=== PATIENT | female | born 1960 | race Caucasian/White ===

== ENCOUNTER 2018-09-27 14:04 | Emergency (ER) | payer SELFPAY ==
[2018-09-27 14:17] VITALS: BP 133/67
--- NOTE | 2018-09-27 14:19 | UC ---
Skin Complaint HPI - HPI Summary HPI Summary: 58 yo female presents with puncture wound. She tells me that last night she was using a knife to remove a plastic ring from a milk jug when the knife slipped and punctured her right hand. She washed the area with water and hydrogen peroxide. Today noticed redness and some mild swelling to the area. Thinks her last tetanus was 9 or 10 years ago. Denies fever, chills, or decreased ROM. - History of Current Complaint Chief Complaint: UCSkin Time Seen by Provider: 09/27/18 14:19 Stated Complaint: RT HAND INJURY Hx Obtained From: Patient Onset/Duration: Sudden Onset Onset Severity: Moderate Current Severity: Moderate Pain Intensity: 5 Pain Scale Used: 0-10 Numeric - Allergy/Home Medications Allergies/Adverse Reactions: Allergies Allergy/AdvReac Type Severity Reaction Status Date / Time naproxen [From Aleve] Allergy Headache Verified 09/27/18 14:18 Home Medications: Home Medications Lisinopril 1 tab PO DAILY 09/27/18 [History Confirmed 09/27/18] Oxybutynin XL TAB* [Ditropan XL TAB*] 1 tab PO DAILY 09/27/18 [History Confirmed 09/27/18] PMH/Surg Hx/FS Hx/Imm Hx - Additional Past Medical History Additional PMH: Overactive bladder Cardiovascular History: Hypertension - Surgical History Surgical History: Yes Surgery Procedure, Year, and Place: upper endoscopy,laparotomy,tonsils - Family History Known Family History: Positive: Hypertension - Social History Lives: With Family Alcohol Use: Rare Substance Use Type: None Smoking Status (MU): Never Smoked Tobacco Review of Systems All Other Systems Reviewed And Are Negative: Yes Constitutional: Positive: Negative Skin: Positive: Other - Right hand redness and puncture wound Respiratory: Positive: Negative Cardiovascular: Positive: Negative Musculoskeletal: Positive: Negative Neurological: Positive: Negative Psychological: Positive: Negative Physical Exam - Summary Physical Exam Summary: GENERAL: NAD. WDWN. No pain distress. SKIN: RIGHT HAND: web spacing of 1st and 2nd digit with 3mm linear puncture wound that is scabbed. Mild erythema and edema extending from this point to base of 1st and 2nd MC. NTTP. No drainage. CHEST: No accessory muscle use. Breathing comfortably and in no distress. CV: Pulses intact. Cap refill <2seconds MSK: FROM at right wrist and all digits without pain NEURO: Alert. PSYCH: Age appropriate behavior. Triage Information Reviewed: Yes Vital Signs: Initial Vital Signs Temp 98.8 F 09/27/18 14:13 Pulse 78 09/27/18 14:13 Resp 18 09/27/18 14:13 BP 133/67 09/27/18 14:13 Pulse Ox 100 09/27/18 14:13 Vital Signs Reviewed: Yes Course/Dx - Course Course Of Treatment: Cellulitis s/p puncture wound. tdap updated today. Will start her on keflex and have her monitor the area and return for any worsening symptoms. - Diagnoses Provider Diagnosis: Cellulitis of right hand, Puncture wound of hand, right Discharge - Sign-Out/Discharge Documenting (check all that apply): Patient Departure All imaging exams completed and their final reports reviewed: No Studies - Discharge Plan Condition: Stable Disposition: HOME Prescriptions: Cephalexin CAP* [Keflex CAP*] 500 mg PO BID #14 cap Patient Education Materials: Cellulitis (ED) Referrals: Jayleen Arias MD [Primary Care Provider] - Additional Instructions: If you develop a fever, shortness of breath, chest pain, new or worsening symptoms - please call your PCP or go to the ED immediately. 1) Monitor the area and if you develop increased redness, swelling, warmth, or pain - be rechecked immediately 2) Keep the area covered when doing dishes or working outdoors - Billing Disposition and Condition Condition: STABLE Disposition: Home - Attestation Statements Provider Attestation: I was available for consult. This patient was seen by the JYOTSNA. The patient was not presented to, seen by, or examined by me. -Leni
[2018-09-27] MEDS ORDERED: Tetan/Diph/Pertus SYR(Tdap)* 0.5 ML SYR(BOOSTRIX) use SYR IM ONE (14:20)
== END 2018-09-27 14:33 | disposition home or self-care (01) ==
LOC: UCEAST 14:04
DX: S61.431A Puncture wound without foreign body of right hand, initial encounter (principal); W26.0XXA Contact with knife, initial encounter; Y93.G1 Activity, food preparation and clean up; Y92.010 Kitchen of single-family (private) house as the place of occurrence of the external cause; Y99.8 Other external cause status; L03.113 Cellulitis of right upper limb; I10 Essential (primary) hypertension
CPT/HCPCS: 90471; 90715; 99212; G0463

== ENCOUNTER 2024-05-05 06:29 | Observation (INO) ==
[~2024-05-05 06:29] MED LIST: NS 0.45% 1000 ml BAG 1,000 ML IV SCH; Naloxone 0.4 mg VIAL 0.4 mg/ml 1 ml VIAL IV PRN; Ondansetron 4 mg VIAL 2 MG/ML 2 ml VIAL IV PRN; ROPIVACAINE 5 MG/ML 30 ML BTL (0.5%) ONE
[2024-05-05] MEDS ORDERED: ceFAZolin 2 GM PREMIX 2 GM/50 ML BAG ONE (07:06)
[2024-05-05] MEDS ORDERED: Tranexamic Acid 1 GM/100ML BAG 2,000 MG/200 ML BAG IV ONE (07:06)
[2024-05-05] MEDS ORDERED: Ondansetron 4 mg VIAL 2 MG/ML 2 ml VIAL ONE (07:08)
[2024-05-05] MEDS ORDERED: Midazolam 5 mg/5 ml VIAL 1 mg/ml 5 ml VIAL (5 mg) ONE (07:08)
[2024-05-05] MEDS ORDERED: Phenylephrine IV 10 MG/ML 1 ml VIAL ONE (07:08)
[2024-05-05] MEDS ORDERED: Dexamethasone IV 4 MG/ML VIAL 1 ml VIAL ONE (07:08)
[2024-05-05] MEDS ORDERED: Propofol 10 MG/ML 20 ML BTL ONE (07:08)
[2024-05-05] MEDS ORDERED: fentaNYL 100 mcg/2 ml 50 MCG/ML VIAL ONE ×3 (07:08→11:12)
[2024-05-05] MEDS ORDERED: Lidocaine 2% PF 5 ML VIAL ONE (07:08)
[2024-05-05 07:12] LABS: Rapid COVID-19 Molecular Undetected (Undetected)
[2024-05-05] MEDS ORDERED: Bupivacaine 0.5% SDV PF 30ML VIAL ONE (07:14)
[2024-05-05] MEDS ORDERED: Propofol 10 mg/ml 100 ML BTL 1,000 MG/100 ML BTL ONE (07:14)
[2024-05-05] MEDS: Scopolamine 1 mg/72hr PATCH TRANSDERM ONE (07:20)
[2024-05-05] MEDS: Lactated Ringers 1000 ml BAG 1,000 ML IV SCH ×2 (07:20→13:16)
[2024-05-05] MEDS: Buffered Lidocaine 1% SYRIN 1 ml INTRADERM ONE (07:20)
[2024-05-05] MEDS ORDERED: HYDROmorphone 0.5 MG/0.5 ML SYRINGE ONE (07:49)
[2024-05-05] MEDS ORDERED: Rocuronium 50 mg VIAL 10 mg/ml 5 ml VIAL (50 mg) ONE (07:50)
[2024-05-05] MEDS ORDERED: Ondansetron ODT 4 mg TAB 4 MG TAB PO PRN (10:54)
[2024-05-05] MEDS ORDERED: Ondansetron 4 mg VIAL 2 MG/ML 2 ml VIAL IV PRN (10:54)
[2024-05-05] MEDS ORDERED: Magnesium Hydroxide LIQ 30 ML UDC PO PRN (10:54)
[2024-05-05] MEDS ORDERED: Calcium Carb (TUMS) 500 mg CHEW TAB PO PRN (10:54)
[2024-05-05] MEDS ORDERED: Lactulose 30 ml UDC PO PRN (10:54)
[2024-05-05] MEDS ORDERED: Morphine 2 MG/ML SYRINGE IV PRN (10:54)
[2024-05-05] MEDS: fentaNYL 100 mcg/2 ml 50 MCG/ML VIAL IV PRN (11:33)
[2024-05-05] MEDS: Acetaminophen IV 1 GM/100ML 1,000 MG/100 ML BAG IV ONE (14:02)
[2024-05-05] MEDS: ceFAZolin 2 GM PREMIX 2 GM/50 ML BAG IV SCH (16:05)
[2024-05-05] MEDS: Magnesium Hydroxide LIQ 30 ML UDC PO SCH (22:38)
[2024-05-06 07:01] LABS: Hematocrit 31.7 % (35-45); Hemoglobin 11.3 g/dL (11.5-14.3); Mean Platelet Volume 6.6 fL (7.5-11.2); Platelet Count 162 10^3/uL (150-450)
[2024-05-06 07:38] LABS: Calcium 8.5 mg/dL (8.6-10.3); Creatinine, Serum 0.74 mg/dL (0.51-0.95); Potassium 4.6 mmol/L (3.5-5.0); eGFR CKD-EPI 90.9 (>60)
[2024-05-06] MEDS: Vitamin THERAPEUTIC TAB PO SCH (08:00)
[2024-05-06 09:53] VITALS: BP 114/71
== END 2024-05-06 13:15 | disposition home or self-care (01) ==
LOC: SSU 06:29 → OR 06:29
PROVIDERS: ADMIT Orthopaedic Surgery Adult Reconstructive Orthopaedic Surgery; ATTEND Orthopaedic Surgery Adult Reconstructive Orthopaedic Surgery